=== PATIENT | male | born 1995 | race Caucasian/White ===

== ENCOUNTER 2017-02-27 13:25 | Emergency (ER) | payer SELFPAY ==
[2017-02-27 13:26] VITALS: BP 123/77; PULSE 84; RESP 16; TEMP 98.5; O2SAT 98
--- NOTE | 2017-02-27 13:43 | PD ---
Physical Exam Time Seen by Provider: 13:41 Narrative 21yo M c/o R testicular pain on and off x1year w/ worsening ing symptoms last night and today. Now pain to R groin too. Denies penile drainage, testicular swelling, dysuria, hematuria. Patient seen in triage. VS reviewed. Patient awaiting bed placement. Data Data Last Documented VS Vital Signs Date Time Temp Pulse Resp B/P (MAP) Pulse Ox O2 Delivery O2 Flow Rate FiO2 02/27/17 13:26 98.5 84 16 123/77 (92) 98 MDM Supervised Visit with MYRON: Judith Livingston Feb 27, 2017 13:43
[2017-02-27 14:09] LABS: BLOOD, URINE NEG (NEG); COMMENT (UR) CULT NOT INDICATED; CULTURE IF INDICATED CULT NOT INDICATED; GLUCOSE,URINE NEG (NEG); KETONE, URINE NEG (NEG); MUCUS URINE FEW /lpf (OCC); NITRITE,URINE NEG (NEG); SQUAMOUS EPITHELIAL CELL URINE <1 /hpf (0-5); URINE COLOR YELLOW (YELLW/STRAW)
--- NOTE | 2017-02-27 16:43 | PD ---
HPI Chief Complaint: Complaint Time Seen by Provider: 15:54 Travel History International Travel<30 days: No Contact w/Intl Traveler<30days: No Traveled to known affect area: No History of Present Illness HPI 21-year-old male came to the emergency room with history of long-standing on and off testicular pain for past 2 years. He says usually both his testicles hurt intermittently but it's usually the right side. He has not seeked for any medical help in the past. Patient recently moved from [place] here. One week ago the pain was very intense which brought him down to his knees. Currently his pain is 3-4 out of 10 which is his baseline pain. Patient does not necessarily lift heavy objects on a daily basis and is not a runner. No penile discharge or hematuria. He did not notice any swelling in his testicular area. Vital signs were stable. There was a UA ordered in triage which is back and within normal limits. PFSH Past Medical History Narrative Medical List of his past medical, surgical, social and family history reviewed from the nursing note. Social History Tobacco Use: Yes Allergies-Medications (Allergen,Severity, Reaction): Coded Allergies: No Known Allergies (Unverified , 02/27/17) Comments No known drug allergies. Reported Meds & Prescriptions Reported Meds & Active Scripts Active No Active Prescriptions or Reported Medications Narrative Medication List of his home medications reviewed from the nursing note. Review of Systems Except as stated in HPI: all other systems reviewed are Neg Physical Exam Narrative GENERAL: Awake, alert, no obvious distress SKIN: Focused skin assessment warm/dry. HEAD: Atraumatic. Normocephalic. EYES: Pupils equal and round. No scleral icterus. No injection or drainage. ENT: No nasal bleeding or discharge. Mucous membranes pink and moist. NECK: Trachea midline. No JVD. CARDIOVASCULAR: Regular rate and rhythm. No murmur appreciated. RESPIRATORY: No accessory muscle use. Clear to auscultation. Breath sounds equal bilaterally. GASTROINTESTINAL: Abdomen soft, non-tender, nondistended. Hepatic and splenic margins not palpable. : No swelling of the spermatic cord, testicles no similar size, no mass or lump identified, no hernia identified patient was circumcised and no obvious discharge MUSCULOSKELETAL: No obvious deformities. No clubbing. No cyanosis. No edema. NEUROLOGICAL: Awake and alert. No obvious cranial nerve deficits. Motor grossly within normal limits. Normal speech. PSYCHIATRIC: Appropriate mood and affect; insight and judgment normal. Data Data Last Documented VS Vital Signs Date Time Temp Pulse Resp B/P (MAP) Pulse Ox O2 Delivery O2 Flow Rate FiO2 02/27/17 18:36 97.8 74 16 110/69 (83) 99 Orders Orders Urinalysis - C+S If Indicated (02/27/17 13:43) Us Testicles W Doppler (02/27/17 ) Mandatory Outpatient Referral (02/27/17 18:32) Labs Laboratory Tests Test 02/27/17 13:50 Urine Color YELLOW Urine Turbidity CLEAR Urine pH 6.0 Urine Specific [place] 1.026 Urine Protein TRACE mg/dL Urine Glucose (UA) NEG mg/dL Urine Ketones NEG mg/dL Urine Occult Blood NEG Urine Nitrite NEG Urine Bilirubin NEG Urine Urobilinogen 2.0 MG/DL Urine Leukocyte Esterase NEG Urine RBC LESS THAN 1 /hpf Urine WBC LESS THAN 1 /hpf Urine Squamous Epithelial Cells <1 /hpf Urine Mucus FEW /lpf Microscopic Urinalysis Comment CULT NOT INDICATED MDM Medical Decision Making Medical Screen Exam Complete: Yes Emergency Medical Condition: Yes Medical Record Reviewed: Yes Differential Diagnosis Testicular torsion, orchitis, epididymitis Narrative Course 4:43 PM awaiting for the ultrasound of the scrotum. Case will be signed over to the oncoming ER physician. Procedures EKG Prior to Arrival: No Scripts No Active Prescriptions or Reported Meds Edi Rodriguez MD Feb 27, 2017 16:43
--- NOTE | 2017-02-27 17:10 | RADRPT ---
EXAM DATE/TIME: 02/27/2017 16:27 [facility] COMPARISON: No previous studies available for comparison. INDICATIONS : Torsion. MEDICAL HISTORY : Testicular pain for 1 year. Right groin pain. SURGICAL HISTORY : None. ENCOUNTER: Initial ACUITY: 2 days PAIN SCORE: 4/10 LOCATION: Bilateral testicles. MEASUREMENTS: RIGHT TESTICLE: 5.6 x 3.8 x 2.5cm LEFT TESTICLE: 5.1 x 3.6 x 2.5 cm FINDINGS: RIGHT TESTICLE: Homogeneous echotexture without intra or extratesticular mass. Blood flow is symmetric and within no rmal limits. No hydrocele or varicocele. Epididymis is within normal limits. LEFT TESTICLE: Homogeneous echotexture without intra or extratesticular mass. Blood flow is symmetric and within no rmal limits. No hydrocele or varicocele. Small cyst in the epididymal head. SCROTUM: Within normal limits. CONCLUSION: Unremarkable study Nick Keys MD on February 27, 2017 at 17:06 Board Certified Radiologist. This report was verified electronically.
--- NOTE | 2017-02-27 17:27 | PD ---
Data Data Last Documented VS Vital Signs Date Time Temp Pulse Resp B/P (MAP) Pulse Ox O2 Delivery O2 Flow Rate FiO2 02/27/17 18:36 97.8 74 16 110/69 (83) 99 Orders Orders Urinalysis - C+S If Indicated (02/27/17 13:43) Us Testicles W Doppler (02/27/17 ) Mandatory Outpatient Referral (02/27/17 18:32) Labs Laboratory Tests Test 02/27/17 13:50 Urine Color YELLOW Urine Turbidity CLEAR Urine pH 6.0 Urine Specific [place] 1.026 Urine Protein TRACE mg/dL Urine Glucose (UA) NEG mg/dL Urine Ketones NEG mg/dL Urine Occult Blood NEG Urine Nitrite NEG Urine Bilirubin NEG Urine Urobilinogen 2.0 MG/DL Urine Leukocyte Esterase NEG Urine RBC LESS THAN 1 /hpf Urine WBC LESS THAN 1 /hpf Urine Squamous Epithelial Cells <1 /hpf Urine Mucus FEW /lpf Microscopic Urinalysis Comment CULT NOT INDICATED MDM Supervised Visit with MYRON: Yes Narrative Course Patient care assumed from Dr. Rodriguez at 1700. This is a 21-year-old male who presents emergency Department with scrotal pain worse on the right for the past 2 years. He states he get worse over the past few days and decided to come and be seen. Is never been seen by a physician for this in the past. My physical exam the patient has no hernias protocol tests are normal and nontender, no abdominal tenderness or pain. Patient appears well in no obvious distress. There is no Virchow's node. No lymphadenopathy that I can appreciate actually. He reports no weight loss. At this time because of the testicular pain remains unknown, ultrasound and UA are negative. The patient is stable for discharge and was referred to urology as well as he [place] [facility] for further evaluation. Diagnosis Primary Impression: Testicular pain Referrals: Seth Simeon MD [facility] Scripts No Active Prescriptions or Reported Meds Disposition: DISCHARGE HOME Condition: Stable Juan Mckoy MD Feb 27, 2017 17:27
[2017-02-27 18:36] VITALS: BP 110/69; TEMP 97.8
== END 2017-02-27 18:41 | disposition home or self-care (01) ==
LOC: NEPD 13:25
DX: N50.811 Right testicular pain (principal)
CPT/HCPCS: 76870; 81001; 93975; 99284